=== PATIENT | female | born 1950 | race Caucasian/White ===

== ENCOUNTER → 2019-05-08 | Outpatient (CLI) | payer MEDICARE, OTHER ==
[~2019-05-08] MED LIST: ACET-1600 PO; AMIL1TAB PO; AMOX1TAB61 PO; ASCO10004 PO; ASPI-496 PO; CHOL200024 PO; CIPR500T87 PO; CYCL5TAB PO; ESTR2TAB PO; HYDR50TA3 PO; LACT1CAP37 PO; MAGN71.5 PO; MELO7.5T31 PO; METO200T47 PO; METR500T PO; MULT-658 PO; OMEP-110 PO; ONDA4TAB7 PO; OXYC-302 PO; TRAM50TA2 PO; UBID100C10 PO; VALS1TAB24 PO; VALS1TAB28 PO; VALS1TAB7 PO; ZOLP10TA PO; ZOLP10TA5 PO
== END | disposition home or self-care (01) ==
LOC: RAD 11:17
PROVIDERS: ATTEND Registered Nurse Registered Nurse First Assistant
DX: M51.36 Other intervertebral disc degeneration, lumbar region (principal); M43.16 Spondylolisthesis, lumbar region; M41.86 Other forms of scoliosis, lumbar region; M48.061 Spinal stenosis, lumbar region without neurogenic claudication
CPT/HCPCS: 72100

== ENCOUNTER → 2020-05-20 | Outpatient (CLI) | payer MEDICARE, OTHER ==
[~2020-05-20] MED LIST changes: +REGADENOSON 0.4 MG/5 ML SYRINGE ONE; -VALS1TAB24 PO; +VALS1TAB25 PO; -VALS1TAB28 PO; +VALS1TAB29 PO
== END | disposition home or self-care (01) ==
LOC: RAD 11:28
PROVIDERS: ATTEND Internal Medicine Cardiovascular Disease
DX: Z01.810 Encounter for preprocedural cardiovascular examination (principal); I44.7 Left bundle-branch block, unspecified; I10 Essential (primary) hypertension; R00.2 Palpitations
CPT/HCPCS: 78452; 93017; A9502; J2785

== ENCOUNTER 2020-06-12 08:57 | Outpatient (CLI) | payer MEDICARE, OTHER ==
[~2020-06-12 08:57] MED LIST changes: +ASCO100018 PO; -ASCO10004 PO; -HYDROCHLOROTH12.5 MG PO; -LOSA100T14 PO; -METO-99 PO; -Vitamin D3 PO
[2020-06-12] MEDS ORDERED: METO-99 PO (09:25)
[2020-06-12] MEDS ORDERED: HYDROCHLOROTH12.5 MG PO (09:25)
[2020-06-12] MEDS ORDERED: LOSA100T14 PO (09:25)
[2020-06-12] MEDS ORDERED: Vitamin D3 PO (09:25)
[2020-06-12 10:13] LABS: BASOPHILS # (AUTO) 0.03 x10^3/uL (0-0.1); BASOPHILS % (AUTO) 0 % (0-1); EOSINOPHILS # (AUTO) 0.26 x10^3/uL (0-0.4); EOSINOPHILS % (AUTO) 3 % (1-7); LYMPHOCYTES # (AUTO) 2.28 x10^3/uL (1-3.4); LYMPHOCYTES % (AUTO) 28 % (22-44); MD NO; MEAN CORPUSCULAR HEMOGLOBIN 31.2 pg (27.0-34.8); MEAN CORPUSCULAR HGB CONC 32.5 g/dL (32.4-35.8); MEAN PLATELET VOLUME 8.6 fL (7.4-10.4); MONOCYTES # (AUTO) 0.55 x10^3/uL (0.2-0.8); MONOCYTES % (AUTO) 7 % (2-9); NEUTROPHILS # (AUTO) 4.96 x10^3/uL (1.8-6.8); NEUTROPHILS % (AUTO) 61 % (42-75); PLATELET COUNT 208 x10^3/uL (130-400); RED CELL DISTRIBUTION WIDTH 13.7 % (9.6-15.2)
[2020-06-12 10:19] LABS: INTERNATIONAL NORMALIZED RATIO 0.94 (0.93-1.1)
[2020-06-12 10:20] LABS: ALANINE AMINOTRANSFERASE 59 U/L (12-78); ALBUMIN 3.9 g/dL (3.4-5.0); ANION GAP 8 mmol/L (5-15); CALCIUM 9.5 mg/dL (8.5-10.1); CHLORIDE 102 mmol/L (98-107); CREATININE 1.04 mg/dL (0.55-1.02)
[2020-06-12 10:23] LABS: ALKALINE PHOSPHATASE 74 U/L (45-117); BILIRUBIN,TOTAL 0.4 mg/dL (0.2-1.0)
[2020-06-12 10:31] LABS: MICROSCOPIC AUTO
[2020-06-29] MEDS ORDERED: TIZA2TAB4 PO (08:30)
[2020-06-29] MEDS ORDERED: OXYC1TAB18 PO (08:30)
== END 2020-06-12 23:59 | disposition home or self-care (01) ==
LOC: STAR 08:57
PROVIDERS: ATTEND Neurological Surgery
DX: Z01.818 Encounter for other preprocedural examination (principal); I44.7 Left bundle-branch block, unspecified; M43.16 Spondylolisthesis, lumbar region
CPT/HCPCS: 36415; 71046; 80053; 81001; 85025; 85610; 85730; 93005

== ENCOUNTER → 2020-06-12 | Outpatient (CLI) | payer MEDICARE, OTHER ==
[~2020-06-12] MED LIST changes: +HYDROCHLOROTH12.5 MG PO; +LOSA100T14 PO; +METO-99 PO; -REGADENOSON 0.4 MG/5 ML SYRINGE ONE; +Vitamin D3 PO
== END | disposition home or self-care (01) ==
LOC: CFH 07:59
PROVIDERS: ATTEND Neurological Surgery
DX: Z01.818 Encounter for other preprocedural examination (principal); M43.16 Spondylolisthesis, lumbar region; M51.37 Other intervertebral disc degeneration, lumbosacral region; M48.07 Spinal stenosis, lumbosacral region
CPT/HCPCS: 72131

== ENCOUNTER 2020-06-19 12:22 | Outpatient (CLI) | payer MEDICARE, OTHER ==
[~2020-06-19 12:22] MED LIST changes: -ASCO100018 PO; +ASCO10004 PO; +HYDROCHLOROTH12.5 MG PO; +LOSA100T14 PO; +METO-99 PO; +Vitamin D3 PO
[2020-06-23] MEDS ORDERED: BUPIVACAINE/PF 0.25% ONE (08:46)
[2020-06-23] MEDS ORDERED: VANCOMYCIN 1,000 MG ONE (08:46)
[2020-06-23] MEDS ORDERED: EPINEPHRINE 1 MG/ML, 1ML ONE (08:46)
[2020-06-23] MEDS ORDERED: BACITRACIN 50,000 UNIT ONE (08:47)
[2020-06-29] MEDS ORDERED: OXYC-432 PO (08:30)
[2020-06-29] MEDS ORDERED: TIZA2TAB4 PO (08:30)
== END 2020-06-19 23:59 | disposition home or self-care (01) ==
LOC: STAR 12:22
PROVIDERS: ATTEND Anesthesiology
DX: Z01.818 Encounter for other preprocedural examination (principal); Z11.59 Encounter for screening for other viral diseases
CPT/HCPCS: 36415; 87635